=== PATIENT | male | born 1995 | race Two or more races ===

== ENCOUNTER 2018-04-04 14:10 | Emergency (ER) | payer OTHER ==
--- NOTE | 2018-04-04 14:54 | ED Physician Documentation ---
PD HPI LOWER EXT INJURY - Stated complaint Stated Complaint: RT ANKLE INJ - Chief complaint Chief Complaint: Ext Problem - History obtained from History obtained from: Patient - History of Present Illness PD HPI LOW EXT INJURY LOCATION: Right, Ankle (He fell off his long board today and injured the right ankle. He is not able to walk or bear weight. No other injuries. He declines pain medication.) Review of Systems Constitutional: reports: Reviewed and negative Cardiac: reports: Reviewed and negative Respiratory: reports: Reviewed and negative PD PAST MEDICAL HISTORY - Past Medical History Past Medical History: No - Past Surgical History Past Surgical History: No - Present Medications Home Medications: Ambulatory Orders Medication Instructions Recorded Confirmed No Known Home Medications [No 04/04/18 04/04/18 Known Home Medications] - Allergies Allergies/Adverse Reactions: Allergies Allergy/AdvReac Type Severity Reaction Status Date / Time No Known Drug Allergies Allergy Verified 04/04/18 14:20 - Social History Does the pt smoke?: No Smoking Status: Never smoker Does the pt drink ETOH?: No Does the pt have substance abuse?: No - Immunizations Immunizations are current?: Yes PD ED PE NORMAL - Vitals Vital signs reviewed: Yes - General General: Alert and oriented X 3, No acute distress - Extremities Extremities: Other (Significant right lateral ankle swelling but no bony tenderness of either malleoli, the anterior joint line, posteriorly, the Achilles, or the foot or the proximal fibula.) - Neuro Neuro: Alert and oriented X 3, Normal speech Results - Vitals Vitals: Vital Signs - 24 hr 18 04/04/18 14:17 15:14 Temperature 36.4 C L Heart Rate 78 80 Respiratory 16 18 Rate Blood Pressure 128/97 H 141/89 H O2 Saturation 99 97 Oxygen O2 Source Room air - Rads (name of study) 3v R ankle Radiology: EMP read contemporaneously (STS no frx) PD MEDICAL DECISION MAKING - Sepsis Event Vital Signs: Vital Signs - 24 hr 18 04/04/18 14:17 15:14 Temperature 36.4 C L Heart Rate 78 80 Respiratory 16 18 Rate Blood Pressure 128/97 H 141/89 H O2 Saturation 99 97 Oxygen O2 Source Room air Departure - Departure Disposition: 01 Home, Self Care Clinical Impression: Right ankle sprain Qualifiers: Encounter type: initial encounter Involved ligament of ankle: anterior talofibular ligament Qualified Code(s): S93.491A - Sprain of other ligament of right ankle, initial encounter Condition: Good Record reviewed to determine appropriate education?: Yes Instructions: ED Sprain Ankle W X Ray Comments: Recheck with your doctor in a week if not better. Return if worse. Your blood pressure was elevated today on check into the emergency department. This does not mean that you have hypertension, it is a common phenomenon to come to the emergency department and have elevated blood pressure. I recommend that you see your primary care physician within the week to have it rechecked when you are feeling better. Forms: Activity restrictions Discharge Date/Time: 04/04/18 15:14
--- NOTE | 2018-04-04 14:59 | XRAY Report ---
Reason: injury/swelling/pain Procedure Date: 04/04/2018 Accession Number: [id number] / [id number] Procedure: XR - Ankle 3 View RT CPT Code: FULL RESULT: EXAM: RIGHT ANKLE RADIOGRAPHY EXAM DATE: 04/04/2018 02:40 PM. CLINICAL HISTORY: Fall off of a skateboard, swelling, injury, pain. COMPARISON: None. TECHNIQUE: 3 views. FINDINGS: Bones: Normal. No fractures or bone lesions. Joints: Moderate to large ankle effusion. Soft Tissues: Extensive soft tissue swelling about the ankle, especially laterally. IMPRESSION: Soft tissue swelling and moderate to large ankle effusion, without underlying fracture or dislocation identified. [facility]
[2018-04-04 15:16] VITALS: BP 141/89
== END 2018-04-04 15:14 | disposition home or self-care (01) ==
LOC: ED 14:10
DX: S93.491A Sprain of other ligament of right ankle, initial encounter (principal); R03.0 Elevated blood-pressure reading, without diagnosis of hypertension; X50.1XXA Overexertion from prolonged static or awkward postures, initial encounter; Y93.I9 Activity, other involving external motion
CPT/HCPCS: 99283